=== PATIENT | female | born 1970 | race Hispanic/Latino ===

== ENCOUNTER 2017-09-14 08:23 | Inpatient (IN) | payer BC ==
[2017-09-14] MEDS ORDERED: Sodium Chloride 0.9% 1,000 ML IV STA (09:49)
--- NOTE | 2017-09-14 10:27 | ED PDOC ---
HPI: Abdomen Time Seen by Provider: 09/14/17 09:16 Chief Complaint (Nursing): Abdominal Pain Chief Complaint (Provider): Abdominal pain History Per: Patient History/Exam Limitations: no limitations Onset/Duration Of Symptoms: Days (2) Outside of [place] travel?: No Additional Complaint(s): Pt presents with constant R sided abdominal pain since last night, associated with >5 episodes of nonbloody vomiting and loose stools. Denies fever, dysuria , hematuria, vaginal bleeding, vaginal discharge. Abnormal Vaginal Bleeding: No Past Medical History Reviewed: Nursing Documentation, Vital Signs Vital Signs: Last Vital Signs Temp 98 F 09/14/17 09:08 Pulse 106 H 09/14/17 13:48 Resp 14 09/14/17 13:48 BP 161/106 H 09/14/17 13:48 Pulse Ox 98 09/14/17 13:48 - Medical History PMH: No Chronic Diseases - Surgical History Surgical History: Other surgeries: Abdominoplasty - Family History Family History: States: Unknown Family Hx - Living Arrangements Living Arrangements: With Family - Social History Current smoker - smoking cessation education provided: No Alcohol: None - Allergies Allergies/Adverse Reactions: Allergies Allergy/AdvReac Type Severity Reaction Status Date / Time Sulfa (Sulfonamide Allergy ITCHING Verified 09/14/17 09:20 Antibiotics) Review of Systems Constitutional: Negative for: Fever, Chills Cardiovascular: Negative for: Chest Pain Respiratory: Negative for: Cough, Shortness of Breath Gastrointestinal: Positive for: Nausea, Vomiting, Abdominal Pain, Diarrhea. Negative for: Constipation, Melena, Hematochezia, Hematemesis Genitourinary Female: Negative for: Dysuria, Hematuria, Vaginal Discharge, Vaginal Bleeding Musculoskeletal: Negative for: Back Pain Skin: Negative for: Rash, Lesions Neurological: Negative for: Headache Physical Exam - Reviewed Nursing Documentation Reviewed: Yes Vital Signs Reviewed: Yes - Physical Exam Appears: Positive for: Well, No Acute Distress Skin: Positive for: Normal Color, Warm, Dry Eye Exam: Positive for: Normal appearance Cardiovascular/Chest: Positive for: Regular Rate, Rhythm Respiratory: Positive for: Normal Breath Sounds Gastrointestinal/Abdominal: Positive for: Bowel Sounds, Soft, Tenderness (RUQ/ RLQ). Negative for: Mass, Distended, Guarding, Rebound, Hernia Back: Positive for: Normal Inspection. Negative for: L CVA Tenderness, R CVA Tenderness Extremity: Positive for: Normal ROM Neurologic/Psych: Positive for: Alert, Oriented - Laboratory Results Result Diagrams: 09/14/17 10:07 09/14/17 10:07 - ECG ECG: Positive for: Interpreted By Me, Viewed By Me ECG Rhythm: Positive for: Normal QRS, Normal ST Segment, Sinus Tachycardia (at 102). Negative for: ST/T Changes O2 Sat by Pulse Oximetry: 98 (RA) Pulse Ox Interpretation: Normal Medical Decision Making Medical Decision Makin yo female with R sided abdominal pain, vomiting and diarrhea. - labs - CT abd/pelvis - IVF - Zofran Time: 12:22 CT abdomen/pelvis FINDINGS: LOWER THORAX: A small hiatal hernia is appreciate with lung bases otherwise unremarkable appearing. LIVER: Diffuse hepatic steatosis is appreciate without underlying mass appreciable or intrahepatic biliary dilatation. GALLBLADDER AND BILE DUCTS: Unremarkable. PANCREAS: Unremarkable. No gross lesion or ductal dilatation. SPLEEN: Unremarkable. ADRENALS: Unremarkable. No mass. KIDNEYS AND URETERS: Mild right hydronephrosis caused by a moderate-sized ureteropelvic junction calculus obstructing the right kidney and causing delayed nephrogram. It measures 7.5 x 7.6 x 9.17 mm. A punctate intrarenal calcified in the lower pole right kidney with no other calculi identified. Mild right perinephric reaction is appreciated with including trace fluid. A tiny lucency seen at the lower pole left kidney which is too small to characterize with left kidney otherwise unremarkable. VASCULATURE: Unremarkable. No aortic aneurysm. BOWEL: Unremarkable. No obstruction. No gross mural thickening. APPENDIX: Normal appendix. PERITONEUM: Unremarkable. No free fluid. No free air. LYMPH NODES: Unremarkable. No enlarged lymph nodes. BLADDER: Unremarkable. REPRODUCTIVE: There is a 4.1 x 2.6 cm cyst at the right ovary which elective follow-up ultrasonography is recommended. BONES: No acute fracture. OTHER FINDINGS: None. IMPRESSION: 1. 7.5 x 7.6 x 9.1 mm calculus toward the right UPJ causing mild right hydronephrosis and perinephric reaction. Delayed nephrogram is also noted in the right kidney with left kidney reflecting only a tiny lucency too small to characterize in the parenchyma. A punctate intrarenal calculus noted at the right kidney which is nonobstructive. 2. Diffuse hepatic steatosis. 3. 4.1 cm right adnexal cyst. Follow-up ultrasonography is advised on elective basis. Time: 12:43 --consulted with Dr. Oakley who recommends admission as well as a urine culture, Rocephin 1 gram and possible stent placement. Time: :45 --blood culture --urine culture --KUB [abdomen (flat plate)] --Rocephin 1 gm duplex Time: 01:00 --spoke to hop weigher international relations professor, Dr. Gleason --Patient is being admitted to hospital, to the care of Dr. Gleason, pending results of x-ray Time: :33 KUB --reviewed by me, no obvious stone revealed. EKG --sinus tachycardic at 102. Normal QRS. No ST/t changes Time: :45 -- patient will be admitted to hospital in med surg bed under care of Dr. Gleason Scribe Attestation: Documented by Vivienne Hernandez, acting as a scribe for Marcelina Harding MD Provider Scribe Attestation: All medical record entries made by the Scribe were at my direction and personally dictated by me. I have reviewed the chart and agree that the record accurately reflects my personal performance of the history, physical exam, medical decision making, and the department course for this patient. I have also personally directed, reviewed, and agree with the discharge instructions and disposition. Disposition - Clinical Impression Clinical Impression: Ureteral calculus, UTI (urinary tract infection), SIRS (systemic inflammatory response syndrome) - Patient ED Disposition Is Patient to be Admitted: Yes - Disposition Disposition Time: 12:57 Condition: STABLE Patient Signed Over To: Jared Gleason - Pt Status Changed To: Hospital Disposition Of: Inpatient - Admit Certification Admit to Inpatient:: After my assessment, the patient will require hospitalization for at least two midnights. This is because of the severity of symptoms shown, intensity of services needed, and/or the medical risk in this patient being treated as an outpatient. - POA Present On Arrival: None
[2017-09-14 10:43] LABS: BASO # 0.1 K/uL (0.0-0.2); BASO % 0.6 % (0.0-2.0); EOS % 0.1 % (0.0-4.0); HEMOGLOBIN 14.5 g/dL (12.0-16.0); LYMPH # 2.7 K/uL (1.0-4.3); LYMPH % 15.9 % (20.0-40.0); MEAN CELL VOLUME 89.4 fl (81.0-99.0); MEAN CORPUSCULAR HEMOGLOBIN 29.1 pg (27.0-31.0); MEAN CORPUSCULAR HGB CONC 32.6 g/dL (33.0-37.0); MEAN PLATELET VOLUME 8.3 fl (7.2-11.7); MONO # 1.1 K/uL (0.0-0.8); MONO % 6.6 % (0.0-10.0); NEUT # 13.1 K/uL (1.8-7.0); NEUT % 76.8 % (50.0-75.0); NRBC % 0.1 % (0.0-0.0); RBC 4.97 Mil/uL (3.80-5.20); RED CELL DISTRIBUTION WIDTH 13.3 % (11.5-14.5)
[2017-09-14 10:51] LABS: ALBUMIN 4.9 g/dL (3.5-5.0); ALT/SGPT 120 U/L (9-52); AST/SGOT 122 U/L (14-36); CALCIUM 9.4 mg/dL (8.4-10.2); GFR AFRICAN-AMERICAN > 60; GFR NON-AFRICAN AMERICAN > 60; LIPASE 63 U/L (23-300)
[2017-09-14 10:52] LABS: ALB/GLOB RATIO 1.4 (1.0-2.1); BLOOD UREA NITROGEN 9 mg/dl (7-17)
[2017-09-14 10:55] LABS: SQUAMOUS EPITHIAL 5 /hpf (0-5); URINE BACTERIA OCC (<OCC); URINE BILIRUBIN NEGATIVE (NEGATIVE); URINE BLOOD MODERATE (NEGATIVE); URINE CLARITY SLIGHTY-CLOUDY (Clear); URINE COLOR YELLOW (YELLOW); URINE GLUCOSE (UA) NEG (Normal); URINE LEUKOCYTE ESTERASE NEG Leu/uL (Negative); URINE NITRATE NEGATIVE (NEGATIVE); URINE PROTEIN 30 mg/dL (NEGATIVE); URINE UROBILINOGEN 0.2-1.0 mg/dL (0.2-1.0)
[2017-09-14 11:01] LABS: PARTIAL THROMBOPLASTIN TIME 32.6 Seconds (25.6-37.1); PROTHROMBIN TIME 10.7 Seconds (9.8-13.1)
[2017-09-14] MEDS ORDERED: Iohexol 300 100 ML IJ ONE (11:02)
--- NOTE | 2017-09-14 12:23 | CT ---
PROCEDURE: CT Abdomen and Pelvis with contrast HISTORY: R sided abd pain COMPARISON: None. TECHNIQUE: Contrast dose: Omnipaque 300, 93 cc. Radiation dose: Total exam DLP = 718.93 mGy-cm. This CT exam was performed using one or more of the following dose reduction techniques: Automated exposure control, adjustment of the mA and/or kV according to patient size, and/or use of iterative reconstruction technique. FINDINGS: LOWER THORAX: A small hiatal hernia is appreciate with lung bases otherwise unremarkable appearing. LIVER: Diffuse hepatic steatosis is appreciate without underlying mass appreciable or intrahepatic biliary dilatation. GALLBLADDER AND BILE DUCTS: Unremarkable. PANCREAS: Unremarkable. No gross lesion or ductal dilatation. SPLEEN: Unremarkable. ADRENALS: Unremarkable. No mass. KIDNEYS AND URETERS: Mild right hydronephrosis caused by a moderate-sized ureteropelvic junction calculus obstructing the right kidney and causing delayed nephrogram. It measures 7.5 x 7.6 x 9.17 mm. A punctate intrarenal calcified in the lower pole right kidney with no other calculi identified. Mild right perinephric reaction is appreciated with including trace fluid. A tiny lucency seen at the lower pole left kidney which is too small to characterize with left kidney otherwise unremarkable. VASCULATURE: Unremarkable. No aortic aneurysm. BOWEL: Unremarkable. No obstruction. No gross mural thickening. APPENDIX: Normal appendix. PERITONEUM: Unremarkable. No free fluid. No free air. LYMPH NODES: Unremarkable. No enlarged lymph nodes. BLADDER: Unremarkable. REPRODUCTIVE: There is a 4.1 x 2.6 cm cyst at the right ovary which elective follow-up ultrasonography is recommended. BONES: No acute fracture. OTHER FINDINGS: None. IMPRESSION: 1. 7.5 x 7.6 x 9.1 mm calculus toward the right UPJ causing mild right hydronephrosis and perinephric reaction. Delayed nephrogram is also noted in the right kidney with left kidney reflecting only a tiny lucency too small to characterize in the parenchyma. A punctate intrarenal calculus noted at the right kidney which is nonobstructive. 2. Diffuse hepatic steatosis. 3. 4.1 cm right adnexal cyst. Follow-up ultrasonography is advised on elective basis.
[2017-09-14] MEDS ORDERED: cefTRIAXone IV 1 gm in Dextros 50 ML IVPB STA (12:43)
[2017-09-14] MEDS ORDERED: cefTRIAXone IV 1 gm in Dextros 50 ML IVPB ONE (13:08)
[2017-09-14 13:30] LABS: VENOUS BLOOD GAS BASE EXCESS 1.7 mmol/L (0.0-2.0); VENOUS BLOOD GAS PCO2 45 mmHg (40-60); VENOUS BLOOD GAS PO2 15 mm/Hg (30-55); VENOUS BLOOD PH 7.39 (7.32-7.43)
[2017-09-14] MEDS: Sodium Chloride 0.9% 1,000 ML IV SCH (17:02)
--- NOTE | 2017-09-14 18:19 | RAD ---
HISTORY: R UVP stone COMPARISON: Abdomen pelvis CT examination 09/14/2017. FINDINGS: BOWEL: There is a paucity of bowel gas appreciate which is a nonspecific finding but can be seen in some obstructive patterns. No bowel obstruction is seen recent and pelvis CT from 09/14/2017. Clinically correlate further nevertheless. Clinically correlate further. Excreted iodinated contrast material is identified through both renal collecting systems and into the urinary bladder with both ureters identified. Right hydroureteronephrosis appears mild in severity. Clinically correlate. Please see separate and pelvis CT also performed 09/14/2017. BONES: Levoscoliotic lumbar spinal deformity. OTHER FINDINGS: None. IMPRESSION: Mild right hydroureteronephrosis, etiology unclear. Paucity of bowel gas apparently does not represent bowel obstruction as per prior CT noted above.
--- NOTE | 2017-09-14 19:32 | CARD ---
APPROVED REPORT EKG Measurement Heart [id number] ME [id number] [id number] <Conclusion> Sinus tachycardia Low voltage QRS Borderline ECG
[2017-09-15] MEDS: Sodium Chloride 0.9% 1,000 ML IV SCH ×2 (05:34→14:15)
[2017-09-15 07:16] LABS: BASO # 0.1 K/uL (0.0-0.2); BASO % 0.6 % (0.0-2.0); EOS # 0.2 K/uL (0.0-0.7); EOS % 2.2 % (0.0-4.0); HEMOGLOBIN 12.1 g/dL (12.0-16.0); LYMPH # 3.7 K/uL (1.0-4.3); LYMPH % 41.6 % (20.0-40.0); MEAN CORPUSCULAR HEMOGLOBIN 29.6 pg (27.0-31.0); MEAN CORPUSCULAR HGB CONC 32.9 g/dL (33.0-37.0); MEAN PLATELET VOLUME 7.7 fl (7.2-11.7); MONO # 0.8 K/uL (0.0-0.8); MONO % 9.4 % (0.0-10.0); NEUT # 4.2 K/uL (1.8-7.0); NEUT % 46.2 % (50.0-75.0); RBC 4.1 Mil/uL (3.80-5.20); RED CELL DISTRIBUTION WIDTH 13.4 % (11.5-14.5)
[2017-09-15 07:35] LABS: ALB/GLOB RATIO 1.2 (1.0-2.1); ALBUMIN 3.5 g/dL (3.5-5.0); ALT/SGPT 80 U/L (9-52); AST/SGOT 71 U/L (14-36); BLOOD UREA NITROGEN 6 mg/dl (7-17); CALCIUM 8.4 mg/dL (8.4-10.2); GFR AFRICAN-AMERICAN > 60; GFR NON-AFRICAN AMERICAN > 60
[2017-09-15] MEDS ORDERED: cefTRIAXone 2 GM in Sodium Chloride 0.9% 100 ML IVPB SCH (09:00)
--- NOTE | 2017-09-15 14:17 | CP.PCM.HP ---
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 started with R Flank pain, radiated to RUQ , Colic type , intensity up 9:10 with nausea, vomiting diarrhea, Patient at one time saw small clot in t e urine , but denies modesta hematuria , Patient came to ER [facility] saturday , CT Abd-Pelvis calculus R UPJ causing mild R hydronephrosis No previous Hx of Renal calculus, 10 yrs ago had a period of frequent UTI' s related to intercourse , She was seen by Urologist guy ad vised use of prophylactic antibiotic prior to intercourse , Patient used for a period of time with relief of symptoms , there after asymptomatic until current episode of R Renal Colic Other medical Hx : HTN in the past when weight was going up and there after normal when weight was down , never treated with medications Present on Admission - Present on Admission Any Indicators Present on Admission: No Review of Systems - Constitutional Constitutional: Other (neg) - EENT Nose/Mouth/Throat: Other (neg) - Cardiovascular Cardiovascular: Other (neg) - Respiratory Respiratory: Other (neg) - Gastrointestinal Gastrointestinal: Diarrhea, Nausea, Vomiting Additional comments: RUQ pain - Genitourinary Genitourinary: Flank Pain (R), Hematuria - Musculoskeletal Musculoskeletal: Other (neg) - Integumentary Integumentary: Other (neg) - Neurological Neurological: Other (neg) - Psychiatric Psychiatric: Other (neg) - Endocrine Endocrine: Other (neg) - Hematologic/Lymphatic Hematologic: Other (neg) Past Patient History - Past Medical History & Family History Past Medical History?: Yes - Past Social History Smoking Status: Never Smoked Alcohol: Social Drugs: Denies Home Situation {Lives}: With Family - CARDIAC Hx Cardiac Disorders: Yes Hx Hypertension: Yes - PULMONARY Hx Respiratory Disorders: No - NEUROLOGICAL Hx Neurological Disorder: No - HEENT Hx HEENT Problems: No - RENAL Hx Chronic Kidney Disease: No Other/Comment: frequent UTI,s 10 yrs ago - ENDOCRINE/METABOLIC Hx Endocrine Disorders: No - HEMATOLOGICAL/ONCOLOGICAL Hx Blood Disorders: No Hx AIDS: No Hx Human Immunodeficiency Virus (HIV): No - INTEGUMENTARY Hx Dermatological Problems: No - MUSCULOSKELETAL/RHEUMATOLOGICAL Hx Musculoskeletal Disorders: No Hx Falls: No - GASTROINTESTINAL Hx Gastrointestinal Disorders: No - GENITOURINARY/GYNECOLOGICAL Hx Genitourinary Disorders: No Other/Comment: [place] 3 para 2. 2 c sections 1 spontaneous - PSYCHIATRIC Hx Psychophysiologic Disorder: No Hx Substance Use: No - SURGICAL HISTORY Hx Section: Yes (x2) Other/Comment: "Tummy tuck - ANESTHESIA Hx Anesthesia: Yes Hx Anesthesia Reactions: No Hx Malignant Hyperthermia: No Has any member of the family had a problem w/ anesthesia?: No Meds Home Medications: Home Medication List Medication Instructions Recorded Confirmed Type Acetaminophen [Tylenol 325mg tab] 650 mg PO Q6 PRN tab 09/15/17 Rx Tamsulosin [Flomax] 0.4 mg PO DAILY 30 Days #30 cap 09/15/17 Rx Allergies/Adverse Reactions: Allergies Allergy/AdvReac Type Severity Reaction Status Date / Time Sulfa (Sulfonamide Allergy ITCHING Verified 09/14/17 09:20 Antibiotics) Physical Exam - Constitutional Appears: No Acute Distress - Head Exam Head Exam: NORMAL INSPECTION - Eye Exam Eye Exam: PERRL - ENT Exam ENT Exam: Normal Exam - Neck Exam Neck exam: Positive for: Normal Inspection - Respiratory Exam Respiratory Exam: NORMAL BREATHING PATTERN - Cardiovascular Exam Cardiovascular Exam: REGULAR RHYTHM - GI/Abdominal Exam GI & Abdominal Exam: Normal Bowel Sounds, Tenderness (mild RUQ) - Exam Additional comments: tenderness R Flank - Extremities Exam Extremities exam: Positive for: normal inspection - Back Exam Back exam: tenderness (R Flank) - Neurological Exam Neurological exam: Alert, CN II-XII Intact, Oriented x3 Additional comments: no motor/sensory deficit - Psychiatric Exam Psychiatric exam: Normal Affect, Normal Mood - Skin Skin Exam: Warm Results - Vital Signs Recent Vital Signs: Last Vital Signs Temp 98.8 F 09/15/17 12:00 Pulse 92 H 09/15/17 12:00 Resp 20 09/15/17 12:00 BP 165/112 H 09/15/17 12:00 Pulse Ox 97 09/15/17 12:00 - Labs Result Diagrams: 09/15/17 07:08 09/15/17 07:08 Labs: Laboratory Results - last 24 hr 09/15/17 09/15/17 07:08 07:08 WBC 9.0 RBC 4.10 Hgb 12.1 D Hct 36.9 MCV 90.0 MCH 29.6 MCHC 32.9 L RDW 13.4 Plt Count 292 MPV 7.7 Neut % (Auto) 46.2 L Lymph % (Auto) 41.6 H [place] % (Auto) 9.4 Eos % (Auto) 2.2 Baso % (Auto) 0.6 Neut # 4.2 Lymph # 3.7 [place] # 0.8 Eos # 0.2 Baso # 0.1 Sodium 141 Potassium 4.0 Chloride 107 Carbon Dioxide 26 Anion Gap 12 BUN 6 L Creatinine 0.8 Est GFR ( Amer) > 60 Est GFR (Non-Af Amer) > 60 Random Glucose 98 Calcium 8.4 Total Bilirubin 0.8 AST 71 H D ALT 80 H D Alkaline Phosphatase 65 Total Protein 6.3 Albumin 3.5 D Globulin 2.8 Albumin/Globulin Ratio 1.2 Assessment & Plan (1) Obstruction of right ureteropelvic junction (UPJ) due to stone Status: Acute (2) Hydronephrosis, right Status: Acute (3) Hepatic steatosis Status: Chronic (4) Renal cyst, right Status: Chronic (5) Hypertension Status: Acute - Assessment and Plan (Free Text) Plan: BP is high , Patient was on IV fluids , and on stress , will give Norvasc 5mg po , and monitor BP in one hour, Patient was cleared by Urologist knowledge management consultant to be discharged on Ceftin 500mg od and Flomax 0.4mg od , Patient has appt as out patient with Private Urologist in the morning. - Date & Time Date: 09/15/17 Time: 13:30
--- NOTE | 2017-09-15 14:41 | PN ---
DATE: 09/15/2017 SUBJECTIVE: The patient is almost completely asymptomatic for the last 12 hours, very minimal complaint of pain requiring no pain medication for the last 12 hours. The patient is voiding christofer urine well. No dysuria, gross hematuria, renal colic or abdominal pain. PHYSICAL EXAMINATION: ABDOMEN: This afternoon, soft, nondistended, nontender. No CVA tenderness and no suprapubic tenderness. LABORATORY DATA: The patient's WBC count dropped from 17.0 on 09/14/2017 down to 9.0, 09/15/2017 this a.m. on IV Rocephin. The patient has a urologist in [place], Dr. John De Souza, with [facility] in [place]. The patient has an appointment with Dr. De Souza tomorrow morning, 09/16/2017 for treatment of her proximal right 7.6 x 7.5 x 9.1 mm ureteral stone. Her complete CBC today shows a WBC count of 9.0, hemoglobin of 12.1 and hematocrit of 36.9 with a platelet count of 292,000. Her chem profile shows a sodium of 141, potassium 4.0, chloride 107, CO2 is 26, BUN and creatinine 6 and 0.8 respectively with a GFR of greater than 60. Random glucose is 98. Her liver profile has also improved, the AST is down from 122 to 71 and her ALT is down from 120 to 80. Calcium is 8.4. Alk phosphatase is 65 down from 99. There is no other microbiology available at this time. DIAGNOSTIC IMPRESSION: 1. Resolving and almost completely resolved right renal colic. 2. Proximal 7.6 x 7.5 x 9.1 mm ureteral stone. 3. Possible acute right pyelonephritis. PLAN: To discharge the patient home on Ceftin 500 mg b.i.d. for 10 days and Flomax 0.4 mg daily. The patient will follow up with her urologist Dr. John De Souza (urologist) with [facility] tomorrow morning, 09/16/2017 in [place]. Koby Oakley MD [facility] # [id number] MTDD
[2017-09-15 16:30] VITALS: RESP 18
[2017-09-15 19:52] VITALS: TEMP 98.7; O2SAT 99
[2017-09-15 23:07] VITALS: BP 136/90; PULSE 98
--- NOTE | 2017-09-16 08:58 | CON ---
COMPREHENSIVE UROLOGIC CONSULTATION REASON FOR ADMISSION: Right renal colic and elevated WBC count of 17,000. BRIEF HISTORY: The patient is a 46-year-old white female from [place], who is visiting in [place] with an acute onset of right renal colic first episode requiring her to come to [facility] ER today on 09/14/2017. Abdominopelvic CT stone survey showed a proximal 7.5 x 7.6 x 9.1 mm ureteral stone causing mild hydronephrosis and mild to moderate right renal colic with an elevated white count of 17.0 requiring admission. This is the patient's first episode of kidney stones. The patient was started on IV Rocephin in the ER. PAST MEDICAL HISTORY: Essentially negative. PAST SURGICAL HISTORY: Includes 2 C-sections and an abdominoplasty more than 10 years ago. PHYSICAL EXAMINATION: GENERAL: The patient is a well-developed, well-nourished slightly obese white female. She is alert. She is oriented. HEENT: Grossly within normal limits. NECK: Supple. Thyroid not palpable. ABDOMEN: Currently soft, not distended or tender. No left CVA tenderness. 2+ right CVA tenderness. EXTREMITIES: She has full range of motion of both upper and lower extremities. LABORATORY DATA: Laboratory evaluation on 09/14/2017 shows a WBC count of 17.0, hemoglobin of 14.5 and hematocrit of 44.4. Platelet count was 359,000. A chem profile showed a sodium of 140, potassium 4.2, chloride of 102, CO2 of 22, BUN and creatinine of 9 and 0.9 respectively with a GFR of greater than 60. Random glucose is 104, total bilirubin 1.0. AST was 122 and ALT was 120, both elevated. Alk phosphatase was 99. Lipase was 63. Urinalysis: Color was yellow. Clarity was slightly cloudy. PH was 6.0, specific gravity 1.018. Glucose is negative. Ketones 20. Protein was 30. Blood was moderate. Nitrite was negative. Bilirubin was negative. Leukocyte esterase was negative. Urobilinogen was 0.2 to 1.0. There were 13 rbc's, 1 wbc and occasional bacteria per high power field. A urine was sent for culture and sensitivity. Blood cultures were also drawn. ASSESSMENT: Diagnostic impression for this patient is, 1. Right renal colic. 2. Right proximal 7.5 x 7.6 x 9.1 mm slightly obstructing ureteral stone with mild right hydronephrosis causing right renal colic and an elevated white count of 17.0. PLAN: Plan for this patient is to admit the patient for IV hydration, IV antibiotics, which will include Rocephin and schedule the patient for cystoscopy with insertion of right ureteral stent if the pain does not resolve and also the white count does not come back down towards the normal range on IV antibiotics. This was completely discussed with the patient at the bedside in the emergency room and also if the stent has to be placed, the patient would like to have shockwave lithotripsy for treatment of her proximal right ureteral stone. We will keep the patient n.p.o. past midnight. Koby Oakley MD
--- NOTE | 2017-09-17 14:26 | PQF GENQUE ---
Dr. Gleason ER Physician Documentation Report documented uti and SIRS. After study were diagnoses of uti and SIRS ruled in or out? This form is a permanent part of the medical record Clarification of your documentation is requested to better reflect the severity of illness and intensity of treatment of your patient. Indicators present [] Specify: [] [] Specify: [] [] Specify: [] [] Specify: [] Location in the medical record that reflects the above clinical findings: [] Treatment Provided: [] PHYSICIAN'S RESPONSE Based on your medical judgment of the clinical indicators outlined above please clarify the following: [] Practitioner response [] If unable to determine, please check the box, sign and date. Present On Admission (POA) Indicator: [] Present at the time of admission [] Not present at the time of admission [] Clinically Undetermined In responding to this query, please exercise your independent professional judgment. The fact that a question is asked does not imply that any particular answer is desired or expected. Thank you for your clarification on this documentation. If you have any questions please call:[ ] * Thank you, [ ]Flores Kim slab off mill tender THELMA
--- NOTE | 2017-09-18 11:58 | CARD ---
APPROVED REPORT EKG Measurement Heart [id number] [place] [id number] <Conclusion> Sinus tachycardia Nonspecific T wave abnormality Abnormal ECG
--- NOTE | 2017-10-15 11:51 | CP.PCM.DIS ---
Provider - Provider Date of Admission: 09/14/17 12:57 Attending physician: Jared Gleason MD Consults: Urology. Time Spent in preparation of Discharge (in minutes): 25 Diagnosis - Discharge Diagnosis (1) Obstruction of right ureteropelvic junction (UPJ) due to stone Status: Acute (2) Hydronephrosis, right Status: Acute (3) Hepatic steatosis Status: Chronic (4) Renal cyst, right Status: Chronic (5) Hypertension Status: Acute Hospital Course - Lab Results Lab Results: Micro Results 09/14/17 14:01 Blood-Venous Blood Culture - Final NO GROWTH AFTER 5 DAYS 09/14/17 14:01 Blood-Venous Gram Stain - Final TEST NOT PERFORMED 09/14/17 13:28 Blood-Venous Blood Culture - Final NO GROWTH AFTER 5 DAYS 09/14/17 13:28 Blood-Venous Gram Stain - Final TEST NOT PERFORMED 09/14/17 12:50 Urine Urine Culture - Final No Growth (<1,000 CFU/ML) Most Recent Lab Values WBC 9.0 K/uL (4.8-10.8) 09/15/17 07:08 RBC 4.10 Mil/uL (3.80-5.20) 09/15/17 07:08 Hgb 12.1 g/dL (12.0-16.0) D 09/15/17 07:08 Hct 36.9 % (34.0-47.0) 09/15/17 07:08 MCV 90.0 fl (81.0-99.0) 09/15/17 07:08 MCH 29.6 pg (27.0-31.0) 09/15/17 07:08 MCHC 32.9 g/dL (33.0-37.0) L 09/15/17 07:08 RDW 13.4 % (11.5-14.5) 09/15/17 07:08 Plt Count 292 K/uL (130-400) 09/15/17 07:08 MPV 7.7 fl (7.2-11.7) 09/15/17 07:08 Neut % (Auto) 46.2 % (50.0-75.0) L 09/15/17 07:08 Lymph % (Auto) 41.6 % (20.0-40.0) H 09/15/17 07:08 [place] % (Auto) 9.4 % (0.0-10.0) 09/15/17 07:08 Eos % (Auto) 2.2 % (0.0-4.0) 09/15/17 07:08 Baso % (Auto) 0.6 % (0.0-2.0) 09/15/17 07:08 Neut # 4.2 K/uL (1.8-7.0) 09/15/17 07:08 Lymph # 3.7 K/uL (1.0-4.3) 09/15/17 07:08 [place] # 0.8 K/uL (0.0-0.8) 09/15/17 07:08 Eos # 0.2 K/uL (0.0-0.7) 09/15/17 07:08 Baso # 0.1 K/uL (0.0-0.2) 09/15/17 07:08 PT 10.7 Seconds (9.8-13.1) 09/14/17 10:07 INR 1.0 (0.9-1.2) 09/14/17 10:07 APTT 32.6 Seconds (25.6-37.1) 09/14/17 10:07 pO2 15 mm/Hg (30-55) L 09/14/17 13:04 VBG pH 7.39 (7.32-7.43) 09/14/17 13:04 VBG pCO2 45 mmHg (40-60) 09/14/17 13:04 VBG HCO3 24.1 mmol/L 09/14/17 13:04 VBG Total CO2 28.6 mmol/L (22-28) H 09/14/17 13:04 VBG O2 Sat (Calc) 25.4 % (40-65) L 09/14/17 13:04 VBG Base Excess 1.7 mmol/L (0.0-2.0) 09/14/17 13:04 VBG Potassium 3.9 mmol/L (3.6-5.2) 09/14/17 13:04 Sodium 137.0 mmol/L (132-148) 09/14/17 13:04 Chloride 103.0 mmol/L (98-107) 09/14/17 13:04 Glucose 111 mg/dL (65-105) H 09/14/17 13:04 Lactate 1.6 mmol/L (0.7-2.1) 09/14/17 13:04 FiO2 21.0 % 09/14/17 13:04 Sodium 141 mmol/l (132-148) 09/15/17 07:08 Potassium 4.0 MMOL/L (3.6-5.0) 09/15/17 07:08 Chloride 107 mmol/L (98-107) 09/15/17 07:08 Carbon Dioxide 26 mmol/L (22-30) 09/15/17 07:08 Anion Gap 12 (10-20) 09/15/17 07:08 BUN 6 mg/dl (7-17) L 09/15/17 07:08 Creatinine 0.8 mg/dl (0.7-1.2) 09/15/17 07:08 Est GFR ( Amer) > 60 09/15/17 07:08 Est GFR (Non-Af Amer) > 60 09/15/17 07:08 Random Glucose 98 mg/dL (65-105) 09/15/17 07:08 Calcium 8.4 mg/dL (8.4-10.2) 09/15/17 07:08 Total Bilirubin 0.8 mg/dl (0.2-1.3) 09/15/17 07:08 AST 71 U/L (14-36) H D 09/15/17 07:08 ALT 80 U/L (9-52) H D 09/15/17 07:08 Alkaline Phosphatase 65 U/L (38-126) 09/15/17 07:08 Total Protein 6.3 G/DL (6.3-8.2) 09/15/17 07:08 Albumin 3.5 g/dL (3.5-5.0) D 09/15/17 07:08 Globulin 2.8 gm/dL (2.2-3.9) 09/15/17 07:08 Albumin/Globulin Ratio 1.2 (1.0-2.1) 09/15/17 07:08 Lipase 63 U/L (23-300) 09/14/17 10:07 Venous Blood Potassium 3.9 mmol/L (3.6-5.2) 09/14/17 13:04 Urine Color Yellow (YELLOW) 09/14/17 10:07 Urine Clarity Slighty-cloudy (Clear) 09/14/17 10:07 Urine pH 6.0 (5.0-8.0) 09/14/17 10:07 Ur Specific [place] 1.018 (1.003-1.030) 09/14/17 10:07 Urine Protein 30 mg/dL (NEGATIVE) 09/14/17 10:07 Urine Glucose (UA) Neg mg/dL (Normal) 09/14/17 10:07 Urine Ketones 20 mg/dL (NEGATIVE) 09/14/17 10:07 Urine Blood Moderate (NEGATIVE) 09/14/17 10:07 Urine Nitrate Negative (NEGATIVE) 09/14/17 10:07 Urine Bilirubin Negative (NEGATIVE) 09/14/17 10:07 Urine Urobilinogen 0.2-1.0 mg/dL (0.2-1.0) 09/14/17 10:07 Ur Leukocyte Esterase Neg [place]/uL (Negative) 09/14/17 10:07 Urine RBC (Auto) 13 /hpf (0-3) H 09/14/17 10:07 Urine Microscopic WBC 1 /hpf (0-5) 09/14/17 10:07 Ur Squamous Epith Cells 5 /hpf (0-5) 09/14/17 10:07 Urine Bacteria Occ (<OCC) H 09/14/17 10:07 Discharge Exam - Head Exam Head Exam: NORMAL INSPECTION Discharge Plan - Discharge Medications Prescriptions: Tamsulosin [Flomax] 0.4 mg PO DAILY 30 Days #30 cap - Follow Up Plan Condition: STABLE Disposition: HOME/ ROUTINE Patient education suggested?: Yes Instructions: Urinary Tract Infection in Women (DC), Urinary Tract Infection in Men (DC), Dysuria (GEN) Additional Instructions: Follow up with PMD in 1 week.
== END 2017-09-15 23:00 | disposition home or self-care (01) | DRG 690 ==
LOC: H.ER 08:23 → H.ERHOLD 12:57 → H.TEL 16:14
PROVIDERS: ADMIT Internal Medicine Pulmonary Disease; ATTEND Internal Medicine Pulmonary Disease
DX: N13.6 Pyonephrosis (principal); K76.0 Fatty (change of) liver, not elsewhere classified; N28.1 Cyst of kidney, acquired; I10 Essential (primary) hypertension; Z88.2 Allergy status to sulfonamides